=== PATIENT | male | born 1945 | race Caucasian/White ===

== ENCOUNTER → 2019-01-07 | Outpatient (CLI) | payer OTHER ==
[~2019-01-07] MED LIST: ASPI-1146 PO; ATOR40TA69 PO; FENO145T PO; LEVO125T95 PO
== END | disposition home or self-care (01) ==
LOC: OIH 13:02
PROVIDERS: ATTEND Internal Medicine Cardiovascular Disease
DX: Z13.6 Encounter for screening for cardiovascular disorders (principal); K76.89 Other specified diseases of liver
CPT/HCPCS: 75571